=== PATIENT | male | born 1995 ===

== ENCOUNTER 2020-08-04 11:07 | Emergency (ER) | payer MEDICAID ==
[~2020-08-04] VITALS: Ht 190.5 cm; Wt 90.0 kg
--- NOTE | 2020-08-04 11:09 | NUR ---
pT BROUGHT IN BY CHANTE FROM [facility] WITH CHIEF COMPLAINT OF BILAT HAND AND FEET SWELLING, PT ALSO REPORTS RECENT HEROIN & METH USE.
[2020-08-04 11:10] VITALS: BP 117/80
--- NOTE | 2020-08-04 11:21 | NUR ---
PT IN BED WITH RAPID JERKY MOVEMENTS. VSS. [place] AT BEDSIDE
[2020-08-04] MEDS ORDERED: NEOSPORIN OINT. PKT 1 PACKET ONE (11:46)
--- NOTE | 2020-08-04 12:46 | NUR ---
pt sleeping in bed
== END 2020-08-04 13:29 | disposition home or self-care (01) ==
LOC: ED 13:23
DX: F15.10 Other stimulant abuse, uncomplicated (principal); F11.10 Opioid abuse, uncomplicated; F17.200 Nicotine dependence, unspecified, uncomplicated
CPT/HCPCS: 99283